=== PATIENT | female | born 1980 | race Caucasian/White ===

== ENCOUNTER → 2017-06-19 | Outpatient (CLI) | payer OTHER ==
[~2017-06-19] MED LIST: NO MEDS
--- NOTE | 2017-06-19 10:37 | EKG ---
FACILITY: [facility] - [place] PATIENT NAME: HERIBERTO ALVARADO : [id number] MR: [id number] V: [id number] EXAM DATE: ORDERING PHYSICIAN: JOSEF ROOT TECHNOLOGIST: ALISSON Daly Reason : PALPITATIONS Blood Pressure : / mmHG Vent. Rate : 057 BPM Atrial Rate : 057 BPM P-R Int : 112 ms QRS Dur : 082 ms QT Int : 426 ms P-R-T Axes : -40 086 050 degrees QTc Int : 414 ms Unusual P axis, possible ectopic atrial bradycardia Nonspecific T wave abnormality No previous ECGs available Confirmed by CARMELO WOODS ([id number]) on 06/20/2017 12:33:59 AM Referred By: DK Confirmed By:CARMELO WOODS
== END ==
LOC: LAB 10:10
PROVIDERS: ATTEND Nurse Practitioner Family
DX: R00.2 Palpitations (principal); R07.9 Chest pain, unspecified
CPT/HCPCS: 36415; 82040; 82247; 82310; 82374; 82435; 82565; 82947; 84075; 84132; 84155; 84295; 84443; 84450; 84460; 84484; 84520; 93005

== ENCOUNTER → 2017-06-20 | Outpatient (CLI) | payer OTHER | LOC: LAB 12:52 | PROVIDERS: ATTEND Nurse Practitioner Family | DX: E03.9 Hypothyroidism, unspecified (principal); E87.6 Hypokalemia | CPT/HCPCS: 36415; 83970; 84439; 84481; 86376; 86800 ==

== ENCOUNTER → 2017-08-12 | Outpatient (CLI) | payer OTHER | LOC: LAB 11:41 | PROVIDERS: ATTEND Nurse Practitioner Family | DX: E03.9 Hypothyroidism, unspecified (principal) | CPT/HCPCS: 36415; 82310; 83970 ==

== ENCOUNTER → 2017-09-05 | Outpatient (CLI) | payer OTHER ==
--- NOTE | 2017-09-05 15:36 | RADIOLOGY IMAGING REPORT ---
FACILITY: [facility] - [place] PATIENT NAME: Francoise Wang : 1980 MR: [id number] V: [id number] EXAM DATE: ORDERING PHYSICIAN: JOSEF ROOT TECHNOLOGIST: Location: [facility] Patient: Francoise Wang : 1980 Visit/Account:[id number] Date of Sevice: 09/05/2017 LUMBAR SPINE 4 VIEWS History: Low back pain. Comparison study: None. Findings: There are 5 nonrib-bearing lumbar vertebral bodies but there is partial lumbarization of S 1 on the right side. There is spina bifida occulta at S1. Lumbar spine has normal lordotic curvature. There is no fracture or spondylolisthesis. There is no spondylolysis defect. There are findings of disc space narrowing most prominent at L5-S1 loss control representative of discogenic degen erative change. The sacroiliac joints are unremarkable. IMPRESSION: 1. Discogenic degenerative changes throughout the lumbar spine are most prominent at L5-S1. 2. No fracture or spondylolisthesis. 3. Partial lumbarization of S1 on the right side. Spina bifida occulta at S1. Report Dictated By: Huey Rde MD at 09/05/2017 3:31 PM Report E-Signed By: Huey Red MD at 09/05/2017 3:32 PM WSN:[email or web address]
== END ==
LOC: RAD 14:22
PROVIDERS: ATTEND Nurse Practitioner Family
DX: M51.36 Other intervertebral disc degeneration, lumbar region (principal); Q76.0 Spina bifida occulta
CPT/HCPCS: 72120

== ENCOUNTER → 2017-09-17 | Outpatient (CLI) | payer OTHER ==
--- NOTE | 2017-09-17 14:48 | RADIOLOGY IMAGING REPORT ---
FACILITY: [facility] PATIENT NAME: Francoise Wang : 1980 MR: [id number] V: [id number] EXAM DATE: [id number] ORDERING PHYSICIAN: JOSEF ROOT TECHNOLOGIST: Location: [facility] Patient: Francoise Wang : 1980 Visit/Account:[id number] Date of Sevice: 09/17/2017 EXAMINATION: L SPINE W/O CONTRAST INDICATION: Chronic back pain COMPARISON: Radiographs September 05, 2017 TECHNIQUE: Multiplane MR imaging was performed through the lumbar spine without contrast. FINDINGS: Vertebral bodies: Transitional lumbosacral anatomy. The lowest disc space will be described as S1-2 f or purposes of this dictation. Conus position/signal: Normal Marrow signal: Minimal degenerative edema surrounds the L5-S1 disc space. Extraspinal structures including psoas muscles/paraspinal soft tissues: The left kidney is only parti ally imaged. There is chronic/potentially congenital dilatation of the left renal collecting system w ith surrounding parenchymal thinning which is incompletely characterized on this exam. L1-2: Normal L2-3: Normal. L3-4: Normal L4-5: Normal L5-S1: Disc desiccation, mild right-sided disc space degeneration, posterior disc annular fissure, sm all disc protrusion, no canal or significant lateral recess narrowing. Mild right foraminal narrowing . Otherwise normal. S1-2: Normal. IMPRESSION: 1. Transitional lumbosacral anatomy as described above. 2. Mild L5-S1 disc space degeneration. 3. Posterior L5-S1 disc annular fissure and small disc protrusion. This disc protrusion results in no significant canal or lateral recess narrowing. 4. Mild right L5-S1 foraminal narrowing. 5. 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 This could alternatively represent the residua of a chronic/congenital UPJ obstruction. Renal ultrasound is recommended for further ya racterization as this is incompletely characterized on this study. Report Dictated By: Primitivo Whitehead MD at 09/17/2017 2:37 PM Report E-Signed By: Primitivo Whitehead MD at 09/17/2017 2:44 PM WSN:[email or web address]
== END ==
LOC: MRI 01:54
PROVIDERS: ATTEND Nurse Practitioner Family
DX: M51.27 Other intervertebral disc displacement, lumbosacral region (principal)
CPT/HCPCS: 72148

== ENCOUNTER → 2017-09-20 | Outpatient (CLI) | payer OTHER ==
--- NOTE | 2017-09-20 17:08 | RADIOLOGY IMAGING REPORT ---
FACILITY: [facility] PATIENT NAME: Francoise Wang : 1980 MR: [id number] V: [id number] EXAM DATE: ORDERING PHYSICIAN: JOSEF ROOT TECHNOLOGIST: Location: [facility] Patient: Francoise Wang : 1980 Visit/Account:[id number] Date of Sevice: 09/20/2017 Ultrasound of the kidneys and urinary bladder HISTORY: Abnormal left kidney on lumbar spine MRI. COMPARISON: Lumbar spine MRI dated 09/17/2017. Findings: Standard ultrasound of the kidneys and urinary bladder is performed. Right kidney: 11.7 x 4.9 x 7.5 cm. Left kidney: 11.8 x 5.2 x 6.7 cm. Kidneys: Unremarkable right kidney. The left kidney is replaced by multiple large cystic spaces which may represent severe chronic hydronephrosis or congenital multicystic dysplastic kidney. No signific ant change after voiding. Urinary bladder: Negative. Visualized aorta and IVC: Patent. IMPRESSION: The left kidney is replaced by multiple large cystic spaces suspicious for severe chronic hydronephrosis or multicystic dysplastic kidney. No significant change after voiding. Report Dictated By: Andrew Vincent MD at 09/20/2017 5:00 PM Report E-Signed By: Andrew Vincent MD at 09/20/2017 5:05 PM WSN:[email or web address]
== END ==
LOC: US 02:58
PROVIDERS: ATTEND Nurse Practitioner Family
DX: R93.421 Abnormal radiologic findings on diagnostic imaging of right kidney (principal)
CPT/HCPCS: 76705

== ENCOUNTER → 2017-12-04 | Outpatient (CLI) | payer OTHER | LOC: LAB 10:28 | PROVIDERS: ATTEND Internal Medicine Nephrology | DX: N18.3 Chronic kidney disease, stage 3 (moderate) (principal) | CPT/HCPCS: 36415; 82565 ==

== ENCOUNTER → 2017-12-12 | Outpatient (CLI) | payer OTHER ==
[~2017-12-12] MED LIST changes: +IOPAMIDOL 76% 75 ML INFUS BTL 75 ML ONE
--- NOTE | 2017-12-12 09:16 | RADIOLOGY IMAGING REPORT ---
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 Contiguous axial images of the abdomen and pelvis was performed from the lung bases to the symphysis pubis. One of the following dose optimization techniques was utilized in the performance of this exam: Autom ated exposure control; adjustment of the mA and/or kV according to the patient's size; or use of an i terative reconstruction technique. Specific details can be referenced in the facility's radiology C T exam operational policy. CONTRAST: 75 cc of Isovue-370 COMPARISON: Ultrasound 09/20/2017, MRI 09/05/2017 FINDINGS: Visualized lung bases: Negative. Hepatobiliary: Negative. Spleen: Negative. Adrenals: Negative. Kidneys/: There is severe chronic left-sided hydronephrosis with little remaining enhancing cortex . The patient functionally has a solitary right kidney. The left kidney measures 7.6 cm in length and the right kidney measures 13.2 cm in length. The changes in the left kidney may reflect chronic membreno ges of UPJ obstruction versus chronic reflux nephropathy. The hydronephrosis is worse in lower pole a nd there is no contrast in ureters. It would be difficult to exclude a duplicated left collecting sy stem. The right kidney is otherwise unremarkable. There is uniform enhancement. No visualized renal or uret eral stones on either side. The bladder, uterus and adnexa are unremarkable. Pancreas: Negative. GI: Patient is constipated. Vessels/spaces/nodes: Negative. Bones/soft tissues: Small disc protrusion L5-S1 is noted. Please note patient has a transitional lum bar spine anatomy in this protrusion corresponds to the protrusion seen on prior MRI. IMPRESSION: 1. Severe chronic left hydronephrosis with little remaining enhancing cortex in left kidney. Patient functionally has a solitary right kidney. The changes in the left kidney could reflect chronic UPJ o bstruction or changes of chronic reflux nephropathy. 2. Right kidney is otherwise unremarkable with uniform enhancement. No visualized renal stones. Report Dictated By: Malcolm Garcia MD at 12/12/2017 8:58 AM Report E-Signed By: Malcolm Garcia MD at 12/12/2017 9:13 AM WSN:[id number]
== END ==
LOC: CT 02:30
PROVIDERS: ATTEND Internal Medicine Nephrology
DX: N13.30 Unspecified hydronephrosis (principal); Z90.5 Acquired absence of kidney
CPT/HCPCS: 74178; Q9967

== ENCOUNTER → 2018-01-21 | Outpatient (CLI) | payer OTHER ==
[~2018-01-21] MED LIST changes: -IOPAMIDOL 76% 75 ML INFUS BTL 75 ML ONE
--- NOTE | 2018-01-21 15:58 | RADIOLOGY IMAGING REPORT ---
FACILITY: [facility] - [place] PATIENT NAME: Francoise Wang : 1980 MR: [id number] V: [id number] EXAM DATE: ORDERING PHYSICIAN: JOSEF ROOT TECHNOLOGIST: [facility] Patient: Francoise Wang : 1980 Visit/Account:[id number] Date of Sevice: 01/21/2018 T SPINE W/O CONTRAST HISTORY: Back pain COMPARISON: None TECHNIQUE: Multi-planar, multi-sequence thoracic spine MRI was performed without intravenous contras t administration. FINDINGS: Alignment: Negative. Vertebral marrow signal: Negative. Paravertebral soft tissues: Negative. Thoracic cord: Negative. Conus: Negative, terminates at T12 Disc Spaces: Upper: Negative. Mid: Negative. Lower: Negative. Other findings: Cystic replacement of the left kidney with renal atrophy IMPRESSION: 1. Normal thoracic spine. 2. Left kidney exhibits cystic replacement with renal atrophy which has been evaluated on recent CT e xamination Report Dictated By: Quang Pendleton MD at 01/21/2018 3:50 PM Report E-Signed By: Quang Pendleton MD at 01/21/2018 3:53 PM WSN:[email or web address]
== END ==
LOC: MRI 01:03
PROVIDERS: ATTEND Nurse Practitioner Family
DX: N26.1 Atrophy of kidney (terminal) (principal)
CPT/HCPCS: 72146